=== PATIENT | female | born 1970 | race Caucasian/White ===

== ENCOUNTER 2020-05-04 14:50 | Emergency (ER) | payer SELFPAY ==
[~2020-05-04 14:50] MED LIST: BACTRIM DS TAB1 EACH PO; DIFLUCAN150 MG PO; PHENERGAN12.5 M1 PO; PREDNISONE 20MG20 MG PO; ZOFRAN8 MG PO
== END 2020-05-04 18:18 | disposition home or self-care (01) ==
LOC: FER 14:50
DX: M54.5 Low back pain (principal); R20.0 Anesthesia of skin; G89.29 Other chronic pain; Z98.1 Arthrodesis status; Z88.6 Allergy status to analgesic agent; Z88.5 Allergy status to narcotic agent; Z88.1 Allergy status to other antibiotic agents; Z79.891 Long term (current) use of opiate analgesic; W18.2XXA Fall in (into) shower or empty bathtub, initial encounter
CPT/HCPCS: 72110

== ENCOUNTER 2020-08-02 14:38 | Emergency (ER) | payer SELFPAY ==
[2020-08-02 15:12] LABS: BASOPHIL 0.3 % (0-2); HCT 45.8 % (37.0-47.0); HGB 15.2 g/dl (12.5-16.0); LYMPHOCYTE 65.1 % (15-48); MCH 30.2 pg (25.0-31.0); MCHC 33.2 g/dL (32.0-36.0); MCV 91.1 fL (78.0-100.0); MONOCYTE 4.3 % (0-12); MPV 8.8 fL (6.0-9.5); NEUTROPHIL 27.7 % (41-80); PLT 227 K/uL (150-400); RBC 5.03 M/uL (4.20-5.40); RDW 13.2 % (11.5-14.0); WBC 10.7 K/uL (4.0-10.5)
[2020-08-02 15:14] LABS: NRBC 0
[2020-08-02 15:31] LABS: BUN/CREAT RATIO (CALC) 19.7 RATIO; CREATININE 0.66 mg/dL (0.51-0.95); POTASSIUM 3.9 mmol/L (3.5-5.1)
[2020-08-02 16:13] LABS: BILIRUBIN NEGATIVE (NEGATIVE); BLOOD TRACE-LYSED Ery/uL (NEGATIVE); CLARITY CLEAR (CLEAR); COLOR YELLOW (YELLOW); GLUCOSE (U) NORMAL (NORMAL); LEUKOCYTES NEGATIVE Leu/uL (NEGATIVE); NITRITE NEGATIVE (NEGATIVE); PROTEIN NEGATIVE (NEGATIVE); SPECIFIC GRAVITY >=1.030 (1.001-1.030); UROBILINOGEN 0.2 mg/dL (0.2-1.0)
[2020-08-02 16:19] LABS: BACTERIA TRACE; CALCIUM OXALATE CRYSTALS MODERATE; URINARY RBC RARE; URINARY WBC RARE
== END 2020-08-02 17:01 | disposition home or self-care (01) ==
LOC: FER 14:38
PROVIDERS: Emergency Medicine
DX: K59.00 Constipation, unspecified (principal); R11.2 Nausea with vomiting, unspecified; Z87.442 Personal history of urinary calculi; Z88.1 Allergy status to other antibiotic agents; Z88.5 Allergy status to narcotic agent; Z88.6 Allergy status to analgesic agent; Z88.8 Allergy status to other drugs, medicaments and biological substances
CPT/HCPCS: 36415; 80048; 81001; 85025; J1170; J2405

== ENCOUNTER 2020-08-04 09:49 | Emergency (ER) | payer SELFPAY ==
[2020-08-04 10:57] LABS: BASOPHIL 0.3 % (0-2); EOSINOPHIL 0.9 % (0-5); HCT 42.6 % (37.0-47.0); HGB 14.6 g/dl (12.5-16.0); LYMPHOCYTE 56.6 % (15-48); MCH 30.6 pg (25.0-31.0); MCHC 34.3 g/dL (32.0-36.0); MCV 89.3 fL (78.0-100.0); MONOCYTE 4.1 % (0-12); MPV 8.8 fL (6.0-9.5); NEUTROPHIL 37.6 % (41-80); NRBC 0; PLT 224 K/uL (150-400); RBC 4.77 M/uL (4.20-5.40); RDW 13.1 % (11.5-14.0)
[2020-08-04 10:59] LABS: WBC 9.9 K/uL (4.0-10.5)
[2020-08-04 11:17] LABS: ALBUMIN 4.1 g/dL (3.4-5.0); BILIRUBIN - TOTAL 0.4 mg/dL (0.2-1.0); BUN/CREAT RATIO (CALC) 18.5 RATIO; CREATININE 0.65 mg/dL (0.51-0.95); POTASSIUM 4.1 mmol/L (3.5-5.1); TOTAL PROTEIN 7.1 g/dL (6.4-8.2)
== END 2020-08-04 11:48 | disposition home or self-care (01) ==
LOC: FER 09:49
PROVIDERS: Emergency Medicine
DX: R10.11 Right upper quadrant pain (principal); R10.31 Right lower quadrant pain; R11.2 Nausea with vomiting, unspecified; M54.9 Dorsalgia, unspecified; G89.29 Other chronic pain; Z87.442 Personal history of urinary calculi; Z88.1 Allergy status to other antibiotic agents; Z88.6 Allergy status to analgesic agent; Z88.5 Allergy status to narcotic agent; Z88.8 Allergy status to other drugs, medicaments and biological substances; Z79.891 Long term (current) use of opiate analgesic
CPT/HCPCS: 36415; 80053; 85025; Q9967

== ENCOUNTER 2020-08-13 12:30 | Emergency (ER) | payer OTHER | END 2020-08-13 17:42 | disposition home or self-care (01) | LOC: FER 12:30 | DX: M54.5 Low back pain (principal); G89.29 Other chronic pain; Z87.828 Personal history of other (healed) physical injury and trauma; Z79.891 Long term (current) use of opiate analgesic; Z86.711 Personal history of pulmonary embolism; Z86.718 Personal history of other venous thrombosis and embolism; Z98.1 Arthrodesis status; Z88.5 Allergy status to narcotic agent; Z88.6 Allergy status to analgesic agent; Z88.1 Allergy status to other antibiotic agents; Z87.891 Personal history of nicotine dependence; W18.2XXA Fall in (into) shower or empty bathtub, initial encounter; Y92.002 Bathroom of unspecified non-institutional (private) residence as the place of occurrence of the external cause | CPT/HCPCS: 99283 ==

== ENCOUNTER 2020-11-18 10:20 | Inpatient (IN) | payer OTHER ==
[~2020-11-18] VITALS: Ht 167.6 cm; Wt 66.5 kg
[2020-11-18 11:51] LABS: BASOPHIL 0.2 % (0-2); EOSINOPHIL 1.7 % (0-5); HCT 42.6 % (37.0-47.0); HGB 13.9 g/dl (12.5-16.0); LYMPHOCYTE 50.1 % (15-48); MCH 29.8 pg (25.0-31.0); MCHC 32.6 g/dL (32.0-36.0); MCV 91.2 fL (78.0-100.0); MONOCYTE 3.5 % (0-12); MPV 9.9 fL (6.0-9.5); NEUTROPHIL 43.9 % (41-80); NRBC 0; PLT 182 K/uL (150-400); RBC 4.67 M/uL (4.20-5.40); RDW 13.4 % (11.5-14.0); WBC 12.2 K/uL (4.0-10.5)
[2020-11-18 11:51] LABS: BILIRUBIN NEGATIVE (NEGATIVE); BLOOD NEGATIVE Ery/uL (NEGATIVE); CLARITY CLEAR (CLEAR); COLOR YELLOW (YELLOW); GLUCOSE (U) NORMAL (NORMAL); LEUKOCYTES NEGATIVE Leu/uL (NEGATIVE); NITRITE NEGATIVE (NEGATIVE); PROTEIN NEGATIVE (NEGATIVE); pH 6.5 (5.0-9.0)
[2020-11-18 12:07] LABS: ALBUMIN 3.9 g/dL (3.4-5.0); BILIRUBIN - TOTAL 0.3 mg/dL (0.2-1.0); BUN/CREAT RATIO (CALC) 17.9 RATIO; CREATININE 0.67 mg/dL (0.51-0.95); POTASSIUM 4.4 mmol/L (3.5-5.1); TOTAL PROTEIN 6.9 g/dL (6.4-8.2)
[2020-11-18] MEDS ORDERED: SUBOXONE 8 MG-1 EACH PO (17:45)
--- NOTE | 2020-11-19 11:58 | NUR ---
DR MORGAN CALLED TO SAY THAT GASTROGAFFIN HAD PASSED THROUGH ON PATIENT'S FILMS. DR MORGAN STATED PATIENT COULD HAVE FULL LIQUID DIET AND FROM HIS PERSPECTIVE, IF PATIENT TOLERATES FULL LIQUID DIET, CAN DISCHARGE HOME AND FOLLOW UP WITH PCP. ATTEMPTED TO NOTIFY HOSPITALIST, NO ANSWER
== END 2020-11-19 13:19 | disposition home or self-care (01) | DRG 390 ==
LOC: FER 10:20 → FMS 15:10 → FER 15:45 → FMS 11-19 13:19
PROVIDERS: Emergency Medicine; ADMIT Internal Medicine
DX: K56.600 Partial intestinal obstruction, unspecified as to cause (principal); F11.21 Opioid dependence, in remission; F17.210 Nicotine dependence, cigarettes, uncomplicated; Z20.822 Contact with and (suspected) exposure to COVID-19; Z90.710 Acquired absence of both cervix and uterus; Z98.1 Arthrodesis status; Z87.442 Personal history of urinary calculi; Z88.5 Allergy status to narcotic agent; Z88.8 Allergy status to other drugs, medicaments and biological substances; Z88.6 Allergy status to analgesic agent; Z88.1 Allergy status to other antibiotic agents; Z79.899 Other long term (current) drug therapy
CPT/HCPCS: 36415; 74019; 74250; 76705; 80053; 81003; 83690; 84145; 85025; 94010; J1170; J2405; J7030; J7120; Q9967; U0002

== ENCOUNTER 2021-01-02 17:54 | Emergency (ER) | payer OTHER ==
[~2021-01-02 17:54] MED LIST changes: +SUBOXONE 8 MG-1 EACH PO
== END 2021-01-02 19:40 | disposition home or self-care (01) ==
LOC: FER 17:54
DX: S80.12XA Contusion of left lower leg, initial encounter (principal); Z88.0 Allergy status to penicillin; Z79.899 Other long term (current) drug therapy; Z88.1 Allergy status to other antibiotic agents; Z88.8 Allergy status to other drugs, medicaments and biological substances; Z88.5 Allergy status to narcotic agent; Z88.6 Allergy status to analgesic agent; X58.XXXA Exposure to other specified factors, initial encounter; Y92.69 Other specified industrial and construction area as the place of occurrence of the external cause; Y99.0 Civilian activity done for income or pay
CPT/HCPCS: 99283

== ENCOUNTER 2021-01-05 15:36 | Emergency (ER) | payer OTHER | END 2021-01-05 18:30 | disposition home or self-care (01) | LOC: FER 15:36 | DX: S93.402A Sprain of unspecified ligament of left ankle, initial encounter (principal); Z86.718 Personal history of other venous thrombosis and embolism; Z98.890 Other specified postprocedural states; Z88.0 Allergy status to penicillin; Z88.5 Allergy status to narcotic agent; Z88.1 Allergy status to other antibiotic agents; Z88.8 Allergy status to other drugs, medicaments and biological substances; Z88.6 Allergy status to analgesic agent; W20.8XXA Other cause of strike by thrown, projected or falling object, initial encounter; Y92.69 Other specified industrial and construction area as the place of occurrence of the external cause; Y99.0 Civilian activity done for income or pay | CPT/HCPCS: 73610; 93971 ==

== ENCOUNTER 2021-01-18 13:24 | Emergency (ER) | payer OTHER | END 2021-01-18 18:10 | disposition home or self-care (01) | LOC: FER 13:24 | DX: S92.352A Displaced fracture of fifth metatarsal bone, left foot, initial encounter for closed fracture (principal); Z86.718 Personal history of other venous thrombosis and embolism; Z88.1 Allergy status to other antibiotic agents; Z88.5 Allergy status to narcotic agent; Z88.6 Allergy status to analgesic agent; Z88.8 Allergy status to other drugs, medicaments and biological substances; W22.8XXA Striking against or struck by other objects, initial encounter; Y92.009 Unspecified place in unspecified non-institutional (private) residence as the place of occurrence of the external cause | CPT/HCPCS: 73600; 73620 ==